=== PATIENT | male | born 1950 ===

== ENCOUNTER 2017-06-24 11:45 | Emergency (ER) | payer MEDICARE, OTHER, MEDICAID ==
[~2017-06-24 11:45] MED LIST: Iopamidol 370 76% 100 ML VIAL ONE
[2017-06-24] MEDS ORDERED: Naproxen 500 MG TAB ONE (12:39)
[2017-06-24 13:18] LABS: Hemoglobin 13.4 g/dL (14.0-18.0); Mean Corpuscular Hemoglobin 28.8 pg (27.0-31.0); Mean Corpuscular Volume 86.4 fL (80.0-94.0); Red Blood Cell (RBC) Count 4.64 mill/uL (4.70-6.10); White Blood Cell (WBC) Count 7.1 thou/uL (4.8-10.8)
[2017-06-24 13:19] LABS: #Eosinphils 0.1 thou/uL (0.0-0.7); #Monocytes 0.5 thou/uL (0.11-0.59); #Neutrophils 5.5 thou/uL (1.40-6.50); %Basophils 0.2 % (0.0-1.0); %Eosinophils 1.8 % (0.0-10.0); %Lymphocytes 14.5 % (21.0-51.0); %Neutrophils 76.5 % (42.0-75.0); ALT (SGPT) 12 U/L (8-55); AST (SGOT) 12 U/L (5-34); Alkaline Phosphatase 119 U/L (40-150); Anion Gap 17 mmol/L (10-20); BUN (Urea Nitrogen) 17 mg/dL (8.4-25.7); Bilirubin, Total 0.6 mg/dL (0.2-1.2); Calc. Creatinine Clearance 0 mL/min (70-130); Calcium 9.8 mg/dL (7.8-10.44); Carbon Dioxide 25 mmol/L (23-31); Chloride 100 mmol/L (98-107); Estimated GFR-MDRD 85; Globulin 4.1 g/dL (2.4-3.5); Glucose 85 mg/dL (80-115); Mean Corpuscular HGB CONC 33.4 g/dL (32.0-36.0); Mean Platelet Volume 7.7 fL (7.4-10.4); Platelet Count 226 thou/uL (130-400); Protein, Total 8.1 g/dL (5.8-8.1); RBC Distribution Width 12.8 % (11.5-14.5); Sodium 138 mmol/L (136-145)
--- NOTE | 2017-06-24 14:58 | RAD ---
LEFT SHOULDER 3 VIEWS: HISTORY: Left shoulder pain. FINDINGS: Acromioclavicular and glenohumeral alignment are maintained. Mild osteophytosis. Subtle lobular [place] over the left upper chest measures up to 4.7 cm oblique diameter. There is calcification in the aortic arch. IMPRESSION: 1. Probable left upper lobe lung mass. Please consider CT chest for better characterization. 2. Degenerative changes left shoulder. 3. Atherosclerosis. CODE T POS: RY
--- NOTE | 2017-06-24 16:11 | CT ---
CT CHEST WITH IV CONTRAST: Date: 06-24-17 Provided Clinical History: Lung mass. FINDINGS: There is a 2.9 x 3.1 cm greatest transverse dimension x 3.7 cm craniocaudal dimension spiculated irre gular mass present at the anterior aspect of the left upper lobe. This is in part inseparable from th e left pleura. There is extensive primarily paraseptal emphysematous change with central lobular emph ysematous change also seen at the lung apices. No additional nodules or masses are identified within the lung parenchyma. The airway appears patent and of normal caliber. There are enlarged prevascular, AP window, right pretracheal and left hilar lymph nodes. Prominent donald bcarinal lymph node is also present. The largest lymph node is prevascular and measures about 2.8 cm in short axis. There is extensive atherosclerotic vascular calcification and irregular noncalcified mural plaque inv olving the thoracic aorta. The heart, pericardium, and great vessels appear otherwise unremarkable. The visualized portions of the upper abdomen demonstrate an unremarkable CT appearance in the phase o f contrast in which the study was acquired with the exception of atherosclerotic vascular disease. The osseous structures demonstrate no definite lytic or blastic lesions. IMPRESSION: 1. 3.7 cm left upper lobe mass compatible with malignancy. Associated mediastinal and left hilar alber opathy. 2. Extensive emphysematous change. 3. Conspicuous atherosclerosis. POS: CET
== END 2017-06-24 15:00 | disposition home or self-care (01) ==
LOC: MADERS 11:45
DX: R91.1 Solitary pulmonary nodule (principal); F17.210 Nicotine dependence, cigarettes, uncomplicated
CPT/HCPCS: 36415; 71260; 80053; 85025

== ENCOUNTER 2017-07-02 10:31 | Outpatient (CLI) | payer MEDICARE, OTHER ==
[2017-07-02 12:05] LABS: Cardiac Risk 5.4 (Less than 4.5)
== END 2017-07-02 10:32 | disposition home or self-care (01) ==
LOC: MADLABBHPM 10:31
PROVIDERS: ATTEND Family Medicine
DX: I49.9 Cardiac arrhythmia, unspecified (principal)
CPT/HCPCS: 36415; 80061; 84443; 93005; 93010